=== PATIENT | female | born 1990 ===

== ENCOUNTER 2018-06-12 17:04 | Outpatient (CLI) | payer OTHER | END 2018-06-12 17:05 | disposition home or self-care (01) | LOC: C.RADIC 17:04 ==

== ENCOUNTER 2018-07-03 09:41 | Outpatient (CLI) | payer OTHER | END 2018-07-03 09:42 | disposition home or self-care (01) | LOC: C.CTH 09:41 ==

== ENCOUNTER 2018-07-23 09:15 | Outpatient (CLI) | payer OTHER | END 2018-07-23 09:16 | disposition home or self-care (01) | LOC: C.USIC 09:15 | DX: R93.5 Abnormal findings on diagnostic imaging of other abdominal regions, including retroperitoneum (principal) ==

== ENCOUNTER 2018-09-10 08:22 | Outpatient (CLI) | payer OTHER | END 2018-09-10 08:23 | disposition home or self-care (01) | LOC: C.USIC 08:22 | DX: N83.202 Unspecified ovarian cyst, left side (principal) ==